=== PATIENT | female | born 1945 | race Caucasian/White ===

== ENCOUNTER 2016-12-05 07:03 | Inpatient (IN) | payer OTHER ==
[2016-11-28 10:52] VITALS: BMI 29.0
--- NOTE | 2016-11-28 11:23 | PAT Medication Instructions ---
Service Date Nov 28, 2016. Current Home Medication List Calcium Carbonate-Vitamin D (Caltrate 600+D), 1 PIECE PO BIDM Celecoxib (Celebrex), 2 CAP PO QAM Lisinopril (Zestril), 10 MG PO QPM Loratadine (Loratadine), 1 TAB PO QPM Multiple Vitamin (Multi Vitamin), 1 TAB PO QAM Medication Instructions For Your Scheduled Surgery - Hold the following medications as directed by surgeon: Celecoxib (Celebrex), 2 CAP PO QAM - Hold the following medications 24 hours prior to surgery: Lisinopril (Zestril), 10 MG PO QPM - Hold the following medications the morning of surgery: Multiple Vitamin (Multi Vitamin), 1 TAB PO QAM Calcium Carbonate-Vitamin D (Caltrate 600+D), 1 PIECE PO BIDM - Take the following medications as scheduled the night before surgery: Calcium Carbonate-Vitamin D (Caltrate 600+D), 1 PIECE PO BIDM Loratadine (Loratadine), 1 TAB PO QPM Nothing to eat or drink after midnight If you have any questions please call us at [phone] or [phone] or [phone]
--- NOTE | 2016-11-28 12:23 | DIAGNOSTIC IMAGING REPORT ---
CHEST 2 VIEWS ROUTINE CLINICAL HISTORY: PAT preoperative evaluation COMPARISON STUDY: No previous studies for comparison. FINDINGS: S-shaped scoliosis of the thoracolumbar spine. Lungs are clear. Diaphragms are smooth. No evidence for cardiac enlargement. IMPRESSION: Negative chest. Electronically signed by: Jack Foster M.D. 11/28/2016 12:22 PM Dictated Date/Time: 11/28/2016 12:22 PM
[2016-11-28 12:32] LABS: BASO % 0.6 %; BASO ABS # 0.03 K/uL (0-0.2); COMPLETE YES; EOS % 1.1 %; HEMATOCRIT 44.7 % (37-47); IG% 0.2 %; LYMPH % 24.1 %; LYMPH ABS # 1.29 K/uL (1.2-3.4); MEAN CELL VOLUME 94.5 fL (80-100); MEAN CORPUSCULAR HEMOGLOBIN 31.1 pg (25-34); MEAN CORPUSCULAR HGB CONC 32.9 g/dl (32-36); MEAN PLATELET VOLUME 9.5 fL (7.4-10.4); MONO % 6.2 %; NEUT % 67.8 %; PLATELET COUNT 275 K/uL (130-400); RED BLOOD COUNT 4.73 M/uL (4.2-5.4); WHITE BLOOD COUNT 5.35 K/uL (4.8-10.8)
[2016-11-28 12:34] LABS: URINE APPEARANCE CLEAR (CLEAR); URINE BILIRUBIN NEG (NEG); URINE COLOR YELLOW; URINE NITRITE NEG (NEG); URINE SPECIFIC GRAVITY 1.015 (1.000-1.030); UROBILINOGEN NEG (NEG)
[2016-11-28 12:41] LABS: MANUAL MICROSCOPIC REQUIRED? NO; REVIEW REQ? NO
[2016-11-28 12:47] LABS: PROTHROMBIN TIME (PATIENT) 10.4 SECONDS (9.0-12.0)
[2016-11-28 13:14] LABS: BUN/CREATININE RATIO 14.4 (10-20); CALCIUM 9.9 mg/dl (8.5-10.1); CREATININE 0.97 mg/dl (0.60-1.20); POTASSIUM 4.5 mmol/L (3.5-5.1)
[2016-12-05] VITALS (8 sets, daily range): BP systolic 95–147; BP diastolic 53–68; PULSE 65–77; TEMP 36.4–36.9; O2SAT 95–99; Ht 149.9 cm; Wt 65.5 kg
[~2016-12-05] VITALS: Ht 149.9 cm; Wt 65.5 kg
--- NOTE | 2016-12-05 06:48 | History and Physical ---
History & Physical Date Dec 05, 2016. Chief Complaint Osteoarthritis Left Knee History of Present Illness The patient is a 71 year old female with complaints of chronic Left knee pain Past Medical/Surgical History hypertension, hepatitis Additional History Hepatic Disease: No Endocrine Disorder: No Kidney Disease: No Hypertension: No Heart Disease: No Bleeding Tendencies: No Infectious Diseases: No Allergies Coded Allergies: NO KNOWN DRUG ALLERGIES (Verified Allergy, Unknown, none, 11/28/16) Home Medications Scheduled Calcium Carbonate-Vitamin D (Caltrate 600+D), 1 PIECE PO BIDM Celecoxib (Celebrex), 2 CAP PO QAM Lisinopril (Zestril), 10 MG PO QPM Loratadine (Loratadine), 1 TAB PO QPM Multiple Vitamin (Multi Vitamin), 1 TAB PO QAM Physical Examination Skin: warm/dry, no rash Eyes: normal inspection, EOMI, sclerae normal ENT: normal ENT inspection, pharynx normal Head: normocephalic, atraumatic Neck: supple, no adenopathy, trachea midline Respiratory/Chest: lungs clear, normal breath sounds, no respiratory distress Cardiovascular: regular rate, rhythm, no edema, no murmur Abdomen / GI: normal bowel sounds, non tender Back: normal inspection Extremities: normal inspection, normal range of motion Neurologic/Psych: no motor/sensory deficits, alert, normal reflexes, oriented x 3 Diagnosis Osteoarthritis Left Knee Plan of Treatment Left Total Knee Arthroplasty
--- NOTE | 2016-12-05 06:49 | History & Physical Bridge Note ---
H&P Re-Evaluation Bridge Note: I have examined the patient, reviewed the History & Physical and in the interval since the performance of the History & Physical I have noted the following changes of clinical significance: No changes noted
[~2016-12-05 07:03] MED LIST: ACETAMINOPHEN 500 MG TAB PO SCH; CALC1CHW PO; CEFAZOLIN 2000 MG/60 ML D5W 60 ML IV SCH; CLB100 PO; FAMOTIDINE 20 MG TAB PO SCH; GABAPENTIN 300 MG CAP PO SCH; LACTATED RINGER'S 1000ML 1,000 ML IV SCH; LACTATED RINGER'S 1000ML 500 ML IV ONE; LISI-461 PO; LORA10CA10 PO; MULT-1027 PO; ROPIVACAINE 5MG/ML 30 ML 150 MG, BUPIVACAINE/EPINEPHR 0.5% MPF 30 ML, KETOROLAC TROMETH... INFIL SCH; TRANEXAMIC ACID INJ 1,000 MG in SODIUM CHLORIDE 0.9% 100ML 100 ML IV SCH
[2016-12-05] MEDS ORDERED: BUPIVACAINE 0.25% 30 ML VIAL ONE (07:04)
[2016-12-05] MEDS ORDERED: BUPIVACAINE 0.5 % 5 MG/1 ML PF 10ML VIAL ONE (07:05)
[2016-12-05] MEDS ORDERED: FENTANYL CITRATE INJ 50 MCG/1 ML 2 ML VIAL ONE (07:52)
[2016-12-05] MEDS ORDERED: MIDAZOLAM HCL 1 MG/ML 2ML VIAL ONE (07:52)
[2016-12-05] MEDS ORDERED: EpHEDrine SULFATE INJ 50 MG/ML AMP IV PRN (08:15)
[2016-12-05] MEDS ORDERED: ATROPINE SULFATE 0.1 MG/ML 5ML SYR IV PRN (08:15)
[2016-12-05] MEDS ORDERED: ONDANSETRON INJ 2 MG/ML 2 ML VIAL IV PRN ×2 (08:15→11:45)
[2016-12-05] MEDS ORDERED: ORTHO JOINT ANESTHETIC ONE (09:53)
[2016-12-05] MEDS ORDERED: BACITRACIN 50000 UNIT VIAL ONE (09:53)
[2016-12-05] MEDS ORDERED: PROPOFOL IV EMULSION 10 MG/ML 20 ML VIAL IV ONE (10:33)
[2016-12-05] MEDS ORDERED: PHENYLEPHRINE HCL INJ 10 MG/ML VIAL ONE (10:34)
[2016-12-05] MEDS ORDERED: EpHEDrine SULFATE INJ 50 MG/ML AMP ONE (10:58)
[2016-12-05] MEDS ORDERED: SILVER SULFADIAZINE 1% CR 50 GM JAR EXT PRN (11:45)
[2016-12-05] MEDS ORDERED: MoRPHine SULFATE 2 MG/ML CARP IV PRN (11:45)
[2016-12-05] MEDS ORDERED: BISACODYL 10 MG SUPP PR PRN (11:45)
[2016-12-05] MEDS ORDERED: SOD PHOSPHATE/SOD BIPHOSPHATE ENEMA 132 ML BTL PR PRN (11:45)
[2016-12-05] MEDS ORDERED: METOCLOPRAMIDE HCL INJ 5 MG/ML 2 ML VIAL IV PRN (11:45)
[2016-12-05] MEDS ORDERED: MAGNESIUM HYDROXIDE SUSP 30 ML UDC PO PRN (11:45)
[2016-12-05] MEDS ORDERED: OXYCODONE HCL IR 5 MG TAB (IMMEDIATE RELEASE) PO PRN (11:45)
--- NOTE | 2016-12-05 11:46 | [facility] Post Operative Brief Note ---
Immediate Operative Summary Operative Date Dec 05, 2016. Pre-Operative Diagnosis Left knee osteoarthritis Post-Operative Diagnosis Left knee osteoarthritis Procedure(s) Performed Left total knee arthroplasty Surgeon Dr. Vaca Shaker Repairer Surgeon(s) Alcides Akers PA-C Estimated Blood Loss 10CC Findings as above Specimens A. Left knee bone and tissue Complication(s) None Disposition Recovery Room / PACU
--- NOTE | 2016-12-05 12:38 | DIAGNOSTIC IMAGING REPORT ---
LEFT KNEE 1 OR 2 VIEWS ROUTINE HISTORY:71 yearsFemalestatus post total knee arthroplasty. COMPARISON: Radiographs of the bilateral knees 09/11/2016 TECHNIQUE: Portable AP and crosstable lateral views of the left knee. FINDINGS: There has been interval complete left knee total joint arthroplasty with patellar resurfacing. There are some small bone fragments seen about the posterior lateral joint space measuring up to 10 mm. Expected postsurgical swelling and deep tissue air seen about the knee with skin willard. No periprosthetic fracture is seen. Alignment is satisfactory. IMPRESSION: Satisfactory alignment status post left knee total joint arthroplasty with patellar resurfacing. The above report was generated using voice recognition software. It may contain grammatical, syntax or spelling errors. Electronically signed by: Jonathan Persaud M.D. 12/05/2016 12:36 PM Dictated Date/Time: 12/05/2016 12:34 PM
--- NOTE | 2016-12-05 12:48 | Anesthesiology Progress Note ---
Anesthesia Post Op Note Date & Time Dec 05, 2016 at 12:48 Vital Signs Pain Intensity: 0 Vital Signs Past 12 Hours Date Time Temp Pulse Resp B/P (MAP) Pulse Ox O2 Delivery O2 Flow Rate FiO2 12/05/16 12:40 76 16 98/52 99 Nasal Cannula 2 12/05/16 12:30 66 16 100/48 99 Nasal Cannula 2 12/05/16 12:20 66 16 99/51 98 Nasal Cannula 2 12/05/16 12:10 90 16 105/54 100 Oxymask 10 12/05/16 12:00 36.6 90 16 95/57 98 Oxymask 10 12/05/16 08:08 36.8 77 20 147/59 97 Room Air Notes Mental Status: alert / awake / arousable, participated in evaluation Pt Amnestic to Procedure: Yes Nausea / Vomiting: adequately controlled Pain: adequately controlled Airway Patency, RR, SpO2: stable & adequate BP & HR: stable & adequate Hydration State: stable & adequate Neuraxial Anesthesia: was administered, sensory block is resolving Anesthetic Complications: no major complications apparent
[2016-12-05] MEDS: SODIUM CHLORIDE 0.9% 1000ML 1,000 ML IV SCH ×2 (14:14→21:46)
[2016-12-05] MEDS: KETOROLAC TROMETHAMINE 15 MG/ML VIAL IV. SCH ×2 (15:06→21:45)
[2016-12-05] MEDS: ACETAMINOPHEN IV 1,000 MG in EMPTY BAG 0 ML IV SCH ×2 (15:27→23:41)
[2016-12-05] MEDS: CALCIUM 600MG + VIT D 400 IU TAB PO SCH (17:46)
[2016-12-05] MEDS: CEFAZOLIN IV 1,000 MG in DEXTROSE 5% 50ML 50 ML IV SCH (17:46)
[2016-12-05] MEDS: DOCUSATE SODIUM 100 MG CAP PO SCH (21:45)
[2016-12-05] MEDS: LISINOPRIL 10 MG TAB PO SCH (21:45)
[2016-12-05] MEDS: ASPIRIN 325 MG ECTAB PO SCH (21:45)
[2016-12-05] MEDS: LORATADINE 10 MG TAB PO SCH (21:45)
[2016-12-05] MEDS: SENNA 8.6 MG TAB PO SCH (21:45)
[2016-12-06] VITALS (8 sets, daily range): BP systolic 86–114; BP diastolic 49–70; PULSE 55–79; TEMP 36.5–37.1; O2SAT 95–98
[2016-12-06] MEDS: CEFAZOLIN IV 1,000 MG in DEXTROSE 5% 50ML 50 ML IV SCH (02:46)
[2016-12-06] MEDS: KETOROLAC TROMETHAMINE 15 MG/ML VIAL IV. SCH ×4 (02:46→21:17)
[2016-12-06 07:30] LABS: HEMATOCRIT 31.8 % (37-47); MEAN CELL VOLUME 95.8 fL (80-100); MEAN CORPUSCULAR HEMOGLOBIN 31.3 pg (25-34); MEAN CORPUSCULAR HGB CONC 32.7 g/dl (32-36); MEAN PLATELET VOLUME 9.3 fL (7.4-10.4); PLATELET COUNT 192 K/uL (130-400); RED BLOOD COUNT 3.32 M/uL (4.2-5.4); WHITE BLOOD COUNT 11.89 K/uL (4.8-10.8)
[2016-12-06] MEDS: SODIUM CHLORIDE 0.9% 1000ML 1,000 ML IV SCH (07:57)
[2016-12-06] MEDS: ACETAMINOPHEN IV 1,000 MG in EMPTY BAG 0 ML IV SCH ×3 (08:00→23:51)
[2016-12-06 08:12] LABS: BUN/CREATININE RATIO 16.7 (10-20); CALCIUM 8.8 mg/dl (8.5-10.1); CREATININE 0.9 mg/dl (0.60-1.20)
[2016-12-06] MEDS: PANTOprazole SOD 40 MG TAB PO SCH (09:53)
[2016-12-06] MEDS: MULTIVITAMIN TAB PO SCH (09:53)
[2016-12-06] MEDS: DOCUSATE SODIUM 100 MG CAP PO SCH ×2 (09:53→21:00)
[2016-12-06] MEDS: ASPIRIN 325 MG ECTAB PO SCH ×2 (09:54→21:18)
[2016-12-06] MEDS: CALCIUM 600MG + VIT D 400 IU TAB PO SCH ×2 (09:54→17:55)
--- NOTE | 2016-12-06 10:53 | Orthopedic Progress Note ---
Orthopedic Progress Note Date of Service Dec 06, 2016. Subjective Post OP Day: 1 Reports: feeling well Additional Notes: S&E at bedside. Doing very well. No complaints Objective Date Time Temp Pulse Resp B/P (MAP) Pulse Ox O2 Delivery O2 Flow Rate FiO2 12/06/16 07:20 108/67 (81) 12/06/16 06:59 36.5 64 18 86/49 (61) 96 Room Air 12/06/16 03:54 36.5 55 16 91/56 (68) 96 Room Air 92/58 (69) 12/05/16 23:46 Room Air 12/05/16 23:00 36.5 73 16 117/68 (84) 95 Room Air 12/05/16 19:41 36.9 65 16 101/60 (74) 97 12/05/16 16:33 36.5 71 16 96/56 (69) 99 Nasal Cannula 12/05/16 15:28 36.7 67 16 99/62 (74) 97 Nasal Cannula 12/05/16 15:20 Nasal Cannula 2.0 12/05/16 14:30 75 16 95/61 (72) 96 12/05/16 14:00 66 16 99/53 (68) 97 12/05/16 13:30 Room Air 12/05/16 13:30 36.4 71 16 98/61 (73) 98 Nasal Cannula 2.0 12/05/16 13:30 Nasal Cannula 2.0 12/05/16 13:05 36.8 65 16 109/49 99 Nasal Cannula 2 12/05/16 12:50 36.8 76 16 102/59 99 Nasal Cannula 2 12/05/16 12:40 76 16 98/52 99 Nasal Cannula 2 12/05/16 12:30 66 16 100/48 99 Nasal Cannula 2 12/05/16 12:20 66 16 99/51 98 Nasal Cannula 2 12/05/16 12:10 90 16 105/54 100 Oxymask 10 12/05/16 12:00 36.6 90 16 95/57 98 Oxymask 10 Laboratory Results 24 Hours: Test 12/06/16 07:06 Hematocrit 31.8 % Hemoglobin 10.4 g/dL Assessment & Plan Assessment: s/p L TKA Plan: Aspirin 325 twice a day for 6 weeks WBAT Oxycodone for pain control plan d/c to home tomorrow
[2016-12-06] MEDS: SENNA 8.6 MG TAB PO SCH (21:00)
[2016-12-06] MEDS: LISINOPRIL 10 MG TAB PO SCH (21:17)
[2016-12-06] MEDS: LORATADINE 10 MG TAB PO SCH (21:18)
[2016-12-07] MEDS: ACETAMINOPHEN IV 1,000 MG in EMPTY BAG 0 ML IV SCH ×2 (00:39→07:36)
[2016-12-07] MEDS: KETOROLAC TROMETHAMINE 15 MG/ML VIAL IV. SCH ×2 (02:31→07:36)
[2016-12-07 03:44] VITALS: BP 118/70; PULSE 67; TEMP 36.6; O2SAT 97
[2016-12-07 06:30] VITALS: BP 116/71; PULSE 71; TEMP 36.7; O2SAT 94
--- NOTE | 2016-12-07 07:01 | Orthopedic Progress Note ---
Orthopedic Progress Note Date of Service Dec 07, 2016. Subjective Post OP Day: 2 Additional Notes: S&E at bedside. Pain controlled. No complaints Objective Date Time Temp Pulse Resp B/P (MAP) Pulse Ox O2 Delivery O2 Flow Rate FiO2 12/07/16 06:30 36.7 71 16 116/71 (86) 94 Room Air 12/07/16 00:05 Room Air 12/06/16 23:18 37.1 79 16 114/70 (85) 95 Room Air 12/06/16 19:36 36.9 73 16 107/66 (80) 98 Room Air 12/06/16 15:40 Room Air 12/06/16 15:04 36.8 70 16 97/64 (75) 96 Room Air 12/06/16 11:06 64 96 12/06/16 08:00 96 Room Air 12/06/16 07:20 108/67 (81) Laboratory Results 24 Hours: Test 12/06/16 07:06 Hematocrit 31.8 % Hemoglobin 10.4 g/dL Assessment & Plan Assessment: s/p L TKA Plan: Aspirin 325 twice a day for 6 weeks WBAT Oxycodone for pain control plan d/c to home today
[2016-12-07] MEDS ORDERED: RXC5 PO (07:02)
--- NOTE | 2016-12-07 07:04 | Discharge Instructions ---
Discharge Instructions Date of Service Dec 07, 2016. Admission Reason for Admission: Primary Gonarthrosis Discharge Discharge Diagnosis / Problem: Left Total Knee Discharge Goals Goal(s): Decrease discomfort, Improve function Activity Recommendations Activity Limitations: as noted below . Instructions / Follow-Up Instructions / Follow-Up Activity and Therapy Recommendations: * If you are using [facility] then Physical Therapy will be provided until they feel you are ready to start Outpatient Physical Therapy. If you are not using a Home Health agency then Outpatient Physical Therapy should start about 3-5 days from your day of surgery. Therapy will last about 6-10 weeks * It is important not to put a pillow under your knee when you are relaxing or sleeping. It is just as important to make sure you are getting your knee perfectly straight as it is to regain your knee bend. * You were shown a series of exercises in the hospital. Do these exercises three times each day including the exercises you were shown in physical therapy. * Get up and walk several times each day. For the first four weeks, try not to stand or walk for more than one hour at a time. If you do stand or walk for more than one hour, you will not hurt anything, but your leg will likely swell. * As you feel comfortable, you may change from the walker or crutches to a cane and then to independent walking. Medications: * Narcotic You will likely be sent home from the hospital with a prescription for the narcotic pain medication that worked best throughout your stay. * Aspirin Most patients will be required to take Aspirin 325mg twice a day for 6 weeks after surgery. This is obtained [id number] and a prescription is not necessary. * Other medications may be prescribed for specific circumstances. If you have any questions, please call the office at . * Resume previous home medications unless otherwise instructed TEDs/Elastic Stockings: The white elastic stockings help limit swelling and prevent blood clots from forming in your legs.~ The more you wear them, the more they work. Wear them for six weeks. Showering: You may shower 5 days from the day of surgery. Let the soapy shower water run over the incision. Do not scrub or soak the dressing or the incision. Things To Watch For: * Drainage from the incision site that occurs more than one week after your surgery. * Increased redness at the incision site. * Fever above 102 degrees Fahrenheit. * Unusual chest pain or shortness of breath. * Call [facility] at with any of the above problems Follow-Up Visit: Follow-up with Dr. Vaca 2-3 weeks after your day of surgery. An appointment was probably scheduled when you signed-up for surgery in the office. If you have any questions call Office Instructions: More detailed instructions as well as Frequently Asked Questions were provided in a folder by our office when you signed-up for surgery. Please review these instructions when you get home. If you have any further questions or concerns, please feel free to call the office at [phone] Current Hospital Diet Patient's current hospital diet: Regular Diet Discharge Diet Recommended Diet: Regular Diet Procedures Procedures Performed: Left total knee arthroplasty Pending Studies Studies pending at discharge: no Medical Emergencies . Who to Call and When: Medical Emergencies: If at any time you feel your situation is an emergency, please call [phone] immediately. . Non-Emergent Contact Non-Emergency issues call your: Surgeon Call Non-Emergent contact if: wound has increased drainage, wound has increased redness . "Provider Documentation" section prepared by Boby Vaca. . VTE Core Measure Inpt VTE Proph given/why not?: Other Anticoagulation (Aspirin 325 twice a day for 6 weeks)
[2016-12-07] MEDS ORDERED: ASPEC325 PO (07:05)
[2016-12-07] MEDS: MULTIVITAMIN TAB PO SCH (07:37)
[2016-12-07] MEDS: ASPIRIN 325 MG ECTAB PO SCH (07:37)
[2016-12-07] MEDS: CALCIUM 600MG + VIT D 400 IU TAB PO SCH (07:37)
[2016-12-07] MEDS: DOCUSATE SODIUM 100 MG CAP PO SCH (07:37)
[2016-12-07] MEDS: PANTOprazole SOD 40 MG TAB PO SCH (07:38)
[2016-12-07 10:16] VITALS: BP 116/71; PULSE 71; TEMP 36.7; O2SAT 94
== END 2016-12-07 11:13 | disposition home or self-care (01) | DRG 470 ==
LOC: C.ACU 07:03 → C.MSW 09:30 → ENRESERV 12:42
PROVIDERS: ADMIT Orthopaedic Surgery; ATTEND Orthopaedic Surgery
PROC: 0SRD0J9 Replacement of Left Knee Joint with Synthetic Substitute, Cemented, Open Approach (ICD-10-PCS; principal; 2016-12-05 09:30)
DX: M17.12 Unilateral primary osteoarthritis, left knee (principal); I10 Essential (primary) hypertension; K75.9 Inflammatory liver disease, unspecified; E66.9 Obesity, unspecified; Z68.29 Body mass index [BMI] 29.0-29.9, adult; Z79.899 Other long term (current) drug therapy; Z87.891 Personal history of nicotine dependence; Z79.1 Long term (current) use of non-steroidal anti-inflammatories (NSAID)

== ENCOUNTER → 2017-04-20 | Outpatient (CLI) | payer OTHER ==
[~2017-04-20] MED LIST changes: +ACET-1311 PO; -ACETAMINOPHEN 500 MG TAB PO SCH; +ASPEC325 PO; -CEFAZOLIN 2000 MG/60 ML D5W 60 ML IV SCH; -FAMOTIDINE 20 MG TAB PO SCH; -GABAPENTIN 300 MG CAP PO SCH; +IBUP-1050 PO; -LACTATED RINGER'S 1000ML 1,000 ML IV SCH; -LACTATED RINGER'S 1000ML 500 ML IV ONE; -ROPIVACAINE 5MG/ML 30 ML 150 MG, BUPIVACAINE/EPINEPHR 0.5% MPF 30 ML, KETOROLAC TROMETH... INFIL SCH; +RXC5 PO; -TRANEXAMIC ACID INJ 1,000 MG in SODIUM CHLORIDE 0.9% 100ML 100 ML IV SCH
[2017-04-20 16:56] LABS: BASO % 0.5 %; BASO ABS # 0.04 K/uL (0-0.2); COMPLETE YES; EOS % 1.9 %; HEMATOCRIT 40.6 % (37-47); IG% 0.1 %; LYMPH % 23.3 %; LYMPH ABS # 1.81 K/uL (1.2-3.4); MEAN PLATELET VOLUME 9.6 fL (7.4-10.4); MONO % 8.2 %; PLATELET COUNT 272 K/uL (130-400); RED BLOOD COUNT 4.32 M/uL (4.2-5.4); WHITE BLOOD COUNT 7.77 K/uL (4.8-10.8)
[2017-04-20 17:04] LABS: URINE APPEARANCE CLEAR (CLEAR); URINE BILIRUBIN NEG (NEG); URINE COLOR YELLOW; URINE NITRITE NEG (NEG); URINE SPECIFIC GRAVITY 1.014 (1.000-1.030); UROBILINOGEN NEG (NEG)
[2017-04-20 17:05] LABS: PROTHROMBIN TIME (PATIENT) 10.5 SECONDS (9.0-12.0)
[2017-04-20 17:10] LABS: BLOOD UREA NITROGEN 11 mg/dl (7-18); BUN/CREATININE RATIO 13.9 (10-20); CALCIUM 9.2 mg/dl (8.5-10.1); CARBON DIOXIDE 28 mmol/L (21-32); CHLORIDE 105 mmol/L (98-107); CREATININE 0.82 mg/dl (0.60-1.20); GLUCOSE 76 mg/dl (70-99); MANUAL MICROSCOPIC REQUIRED? NO; POTASSIUM 4.2 mmol/L (3.5-5.1); REVIEW REQ? NO; SODIUM 138 mmol/L (136-145)
--- NOTE | 2017-04-24 12:23 | CODING QUERY MEDICAL NECESSITY ---
CQSUPPORTING DIAGNOSIS NEEDED A supporting diagnosis is required for the test/procedure performed on this patient in order for us to be reimbursed by the patient's insurance. Please provide a supporting diagnosis for the following test/procedure listed below next to the test name along with your signature. *If there is no additional diagnosis for this patient that would support the following test/procedure please document that below next to the test/procedure. Test(s)/Procedure(s) that require a supporting diagnosis: DOS 04/20/17 COMPLETE BLOOD COUNT TEST URINE CULTURE TEST Provider Signature: Date: Thank you Valerie Rowley Health Information Management Once completed, please kindly fax back to [phone] For questions please call [phone]
== END | disposition home or self-care (01) ==
LOC: C.LABBC 14:38
PROVIDERS: ATTEND Orthopaedic Surgery
DX: Z01.812 Encounter for preprocedural laboratory examination (principal); M17.11 Unilateral primary osteoarthritis, right knee

== ENCOUNTER 2017-05-19 09:14 | Inpatient (IN) | payer OTHER ==
[2017-04-23 09:27] VITALS: Ht 149.9 cm; Wt 63.0 kg
--- NOTE | 2017-05-14 08:00 | HISTORY & PHYSICAL EXAMINATION ---
DATE OF ADMISSION: 05/19/2017 CHIEF COMPLAINT: Primary osteoarthritis of the right knee. HISTORY OF PRESENT ILLNESS: Lucy is a very pleasant 72-year-old female who has been dealing with a several year history of bilateral knee pain. I just did a left total knee arthroplasty on her in November 2016 and she has done very well with that. Unfortunately, she is having a lot of right knee pain. X-rays and clinical examination were diagnostic for primary osteoarthritis of the right knee. After failing extensive conservative treatment, she elected to proceed with a right total knee arthroplasty. PAST MEDICAL HISTORY: Hypertension and hepatitis. PAST SURGICAL HISTORY: Significant for hysterectomy, carpal tunnel release, left total knee arthroplasty. ALLERGIES: None. MEDICATIONS: Lisinopril 10 mg daily, Claritin 10 mg daily, citrate, ibuprofen, multivitamin. FAMILY HISTORY: Colorectal cancer, heart disease. SOCIAL HISTORY: The patient is , has 2 kids, rarely drinks, is very active. REVIEW OF SYSTEMS: She complains of right knee pain. All other pertinent review of systems are negative. PHYSICAL EXAMINATION: GENERAL: She is awake, alert and oriented x3. She is in no apparent distress. She is very pleasant. HEENT: Pupils are equal, round and reactive to light. Extraocular motion intact. Oral mucosa is pink and moist. HEART: Regular rate per radial pulse. LUNGS: Phyllis symmetrically bilaterally with no audible breath sounds. ABDOMEN: Soft, nontender, nondistended. MUSCULOSKELETAL: On physical examination of the right knee, she ambulates independently without a limp. She has good motion from 0-125 degrees. She does have crepitus through range of motion. She has significant tenderness to palpation over the medial joint line and over the distal medial femoral condyle. She has mild bony hypertrophy. X-rays of the right knee do show advanced osteoarthritis mostly involving the medial compartment. There is joint space narrowing and osteophyte formation. IMPRESSION: Primary osteoarthritis of the right knee. PLAN: Will proceed with a right total knee arthroplasty. Postoperatively, she will be kept on aspirin for DVT prophylaxis and kept in the hospital for 2 midnights for postoperative medical management.
[2017-05-19] VITALS (7 sets, daily range): BP systolic 85–128; BP diastolic 51–81; PULSE 53–73; TEMP 36.2–36.7; O2SAT 94–100
[~2017-05-19] VITALS: Ht 149.9 cm; Wt 63.0 kg
[2017-05-19] MEDS: TRANEXAMIC ACID INJ 1,000 MG in SYRINGE 0 ML IV SCH ×2 (06:30→12:08)
[~2017-05-19 09:14] MED LIST changes: +ACETAMINOPHEN 500 MG TAB PO SCH; -ASPEC325 PO; +ATROPINE SULFATE 0.1 MG/ML 5ML SYR IV PRN; +BUPIVACAINE 0.25% 30 ML VIAL ONE; +BUPIVACAINE 0.5 % 5 MG/1 ML PF 10ML VIAL ONE; +CEFAZOLIN 2000MG IV PUSH 10 ML IV SCH; -CLB100 PO; +EpHEDrine SULFATE INJ 50 MG/ML AMP IV PRN; +EpINEphrine INJ 1MG/ML AMP 1 MG/ML AMP ONE; +FAMOTIDINE 20 MG TAB PO SCH; +FENTANYL CITRATE INJ 50 MCG/1 ML 2 ML VIAL IV PRN; +FLUMAZENIL 0.1 MG/1 ML 10 ML VIAL IV PRN; +GABAPENTIN 300 MG CAP PO SCH; +HYDROmorphone INJ 2 MG/ML SYR/VIAL IV PRN; +LABETALOL HCL IV 5 MG/ML 20ML IV PRN; +LACTATED RINGER'S 1000ML 1,000 ML IV SCH; +LACTATED RINGER'S 1000ML 500 ML IV ONE; +LACTATED RINGER'S 1000ML IV SCH; +MEPERIDINE HCL 25 MG/ML CARP IV PRN; +NALOXONE HCL 0.4 MG/1 ML VIAL/CARP IV PRN; +ONDANSETRON INJ 2 MG/ML 2 ML VIAL IV PRN; +PHENYLEPHRINE 100MCG/ML 5ML SYR IV PRN; +ROPIVACAINE 5MG/ML 30 ML 150 MG, BUPIVACAINE 0.5% MPF INJ 30 ML, EpINEphrine HCL INJ 0.... INFIL SCH; -RXC5 PO
[2017-05-19] MEDS ORDERED: MIDAZOLAM HCL 1 MG/ML 2ML VIAL ONE ×2 (09:50→12:48)
[2017-05-19] MEDS ORDERED: FENTANYL CITRATE INJ 50 MCG/1 ML 2 ML VIAL ONE (09:50)
[2017-05-19] MEDS ORDERED: PROPOFOL IV EMULSION 10 MG/ML 20 ML VIAL IV ONE (09:51)
[2017-05-19] MEDS ORDERED: ORTHO JOINT ANESTHETIC ONE (10:49)
[2017-05-19] MEDS ORDERED: BACITRACIN 50000 UNIT VIAL ONE (10:49)
[2017-05-19] MEDS ORDERED: EpHEDrine SULFATE 50MG/5ML SYR ONE (12:53)
[2017-05-19] MEDS ORDERED: PHENYLEPHRINE 100MCG/ML 5ML SYR ONE (12:53)
--- NOTE | 2017-05-19 13:56 | [facility] Post Operative Brief Note ---
Immediate Operative Summary Operative Date May 19, 2017. Pre-Operative Diagnosis Primary osteoarthritis of the right knee Post-Operative Diagnosis Primary osteoarthritis of the right knee Procedure(s) Performed Right total knee arthroplasty Surgeon Dr. Boby Vaca DO Desulfurizer Operator Surgeon(s) Donavan Akers PA-C Estimated Blood Loss 5ml Findings as above Specimens A. Bone and tissue right knee Complication(s) None Disposition Recovery Room / PACU
[2017-05-19] MEDS ORDERED: OXYCODONE HCL IR 5 MG TAB (IMMEDIATE RELEASE) PO PRN (14:00)
[2017-05-19] MEDS ORDERED: MoRPHine SULFATE 2 MG/ML CARP IV PRN (14:00)
[2017-05-19] MEDS ORDERED: METOCLOPRAMIDE HCL INJ 5 MG/ML 2 ML VIAL IV PRN (14:00)
[2017-05-19] MEDS ORDERED: BISACODYL 10 MG SUPP PR PRN (14:00)
[2017-05-19] MEDS ORDERED: MAGNESIUM HYDROXIDE SUSP 30 ML UDC PO PRN (14:00)
[2017-05-19] MEDS ORDERED: SOD PHOSPHATE/SOD BIPHOSPHATE ENEMA 132 ML BTL PR PRN (14:00)
[2017-05-19] MEDS ORDERED: ONDANSETRON INJ 2 MG/ML 2 ML VIAL IV PRN (14:00)
--- NOTE | 2017-05-19 14:44 | DIAGNOSTIC IMAGING REPORT ---
TWO VIEWS RIGHT KNEE CLINICAL HISTORY: Postoperative examination. FINDINGS: AP and crosstable lateral portable views of the right knee are obtained. A right knee arthroplasty is in near anatomic alignment. There has been undersurface remodeling of the patella. No acute fracture is seen. There are expected postoperative changes around the knee including skin clips, a surgical drain, soft tissue edema, and subcutaneous gas. IMPRESSION: Expected postoperative changes status post right knee arthroplasty. No acute fracture is seen. Electronically signed by: Jose Antonio Hart M.D. 05/19/2017 2:43 PM Dictated Date/Time: 05/19/2017 2:43 PM
--- NOTE | 2017-05-19 15:21 | Anesthesiology Progress Note ---
Anesthesia Post Op Note Date & Time May 19, 2017 at 15:21 Vital Signs Pain Intensity: 0 Vital Signs Past 12 Hours Date Time Temp Pulse Resp B/P (MAP) Pulse Ox O2 Delivery O2 Flow Rate FiO2 05/19/17 15:05 56 17 99/53 100 Nasal Cannula 2 05/19/17 14:55 51 19 88/45 100 Nasal Cannula 2 05/19/17 14:45 68 18 95/79 100 Nasal Cannula 2 05/19/17 14:35 57 14 87/44 100 Oxymask 10 05/19/17 14:25 52 16 90/43 100 Oxymask 10 05/19/17 14:17 36.2 88 18 87/46 97 Oxymask 10 05/19/17 09:36 36.7 73 18 128/81 99 Room Air Notes Mental Status: alert / awake / arousable, participated in evaluation Pt Amnestic to Procedure: Yes Nausea / Vomiting: adequately controlled Pain: adequately controlled Airway Patency, RR, SpO2: stable & adequate BP & HR: stable & adequate Hydration State: stable & adequate Neuraxial Anesthesia: was administered, sensory block is resolving Anesthetic Complications: no major complications apparent
--- NOTE | 2017-05-19 16:00 | Discharge Instructions ---
Discharge Instructions Date of Service May 19, 2017. Admission Reason for Admission: Right Knee Degenerative Joint Disease Discharge Discharge Diagnosis / Problem: Right Total Knee Discharge Goals Goal(s): Decrease discomfort, Improve function Activity Recommendations Activity Limitations: as noted below . Instructions / Follow-Up Instructions / Follow-Up Activity and Therapy Recommendations: * If you are using [facility] then Physical Therapy will be provided until they feel you are ready to start Outpatient Physical Therapy. If you are not using a Home Health agency then Outpatient Physical Therapy should start about 3-5 days from your day of surgery. Therapy will last about 6-10 weeks * It is important not to put a pillow under your knee when you are relaxing or sleeping. It is just as important to make sure you are getting your knee perfectly straight as it is to regain your knee bend. * You were shown a series of exercises in the hospital. Do these exercises three times each day including the exercises you were shown in physical therapy. * Get up and walk several times each day. For the first four weeks, try not to stand or walk for more than one hour at a time. If you do stand or walk for more than one hour, you will not hurt anything, but your leg will likely swell. * As you feel comfortable, you may change from the walker or crutches to a cane and then to independent walking. Medications: * Narcotic You will likely be sent home from the hospital with a prescription for the narcotic pain medication that worked best throughout your stay. * Aspirin Most patients will be required to take Aspirin 325mg twice a day for 6 weeks after surgery. This is obtained [id number] and a prescription is not necessary. * Other medications may be prescribed for specific circumstances. If you have any questions, please call the office at . * Resume previous home medications unless otherwise instructed TEDs/Elastic Stockings: The white elastic stockings help limit swelling and prevent blood clots from forming in your legs.~ The more you wear them, the more they work. Wear them for six weeks. Showering: You may shower 5 days from the day of surgery. Let the soapy shower water run over the willard. Do not scrub or soak the incision. Things To Watch For: * Drainage from the incision site that occurs more than one week after your surgery. * Increased redness at the incision site. * Fever above 102 degrees Fahrenheit. * Unusual chest pain or shortness of breath. * Call [facility] at with any of the above problems Follow-Up Visit: Follow-up with Dr. Vaca 2 weeks after your day of surgery. An appointment was probably scheduled when you signed-up for surgery in the office. If you have any questions call Office Instructions: More detailed instructions as well as Frequently Asked Questions were provided in a folder by our office when you signed-up for surgery. Please review these instructions when you get home. If you have any further questions or concerns, please feel free to call the office at [phone] Current Hospital Diet Patient's current hospital diet: Regular Diet Discharge Diet Recommended Diet: Regular Diet Procedures Procedures Performed: Right total knee arthroplasty Pending Studies Studies pending at discharge: no Medical Emergencies . Who to Call and When: Medical Emergencies: If at any time you feel your situation is an emergency, please call [phone] immediately. . Non-Emergent Contact Non-Emergency issues call your: Surgeon Call Non-Emergent contact if: wound has increased drainage, wound has increased redness . "Provider Documentation" section prepared by Boby Vaca. . VTE Core Measure Inpt VTE Proph given/why not?: Other Anticoagulation (Aspirin 325 twice a day for 6 weeks)
[2017-05-19] MEDS: KETOROLAC TROMETHAMINE 15 MG/ML VIAL IV. SCH ×2 (16:43→21:32)
--- NOTE | 2017-05-19 16:48 | OPERATIVE REPORT ---
DATE OF OPERATION: 05/19/2017 PREOPERATIVE DIAGNOSIS: Primary osteoarthritis of the right knee. POSTOPERATIVE DIAGNOSIS: Same. PROCEDURE: Right total knee arthroplasty. SURGEON: Dr. Boby Vaca. ELECTRONIC MASKING SYSTEM OPERATOR: Donavan Akers PA-C, whose assistance was necessary for retraction and closure. ANESTHESIA: Spinal with a right adductor nerve block. COMPLICATIONS: None. CONDITION: Stable to PACU. IMPLANTS USED: I used a [employer] total knee arthroplasty system with a size 60 femur, 67 tibia, a 28 x 8 mm patella, and a size 10 posterior stabilized poly. All complements were cemented with Palacos-G cement. INDICATIONS: Lucy is a pleasant 72-year-old female who has been complaining of chronic right knee pain. X-rays and clinical examination were diagnostic for primary osteoarthritis of the right knee. After failing extensive conservative treatment, she elected to undergo a right total knee arthroplasty. I did a left total knee arthroplasty on her in the recent past. OPERATION AND FINDINGS: On 05/19/2017 she arrived at [facility] for the above procedure. She was seen in the preoperative holding area and the operative extremity was identified and signed. She was given a preoperative antibiotic, a spinal anesthetic and a right adductor nerve block. She was taken back to the operating room, laid on the table in supine position and put under basic sedation. The right knee was then prepped and draped in sterile fashion. Time-out was done and the patient and operative extremity was properly identified. A longitudinal incision was made directly over the patella. Dissection was taken down to the extensor mechanism and a medial parapatellar arthrotomy was used. The fat pad was left intact and medial retinaculum was released and the knee was flexed. ACL and PCL and meniscus were removed. A drill was sent down the center of the femoral canal, followed by an intramedullary bettie. Off that bettie, a distal femoral cutting block was placed. A 12 mm was resected off the distal femur at 5 degrees of valgus. The distal femur was then measured with a posterior referencing guide and measured to be a size 60. Two drill holes were then placed in 3 degrees of external rotation. A 4-in-1 cutting block was then impacted into place. Anterior, posterior and chamfer cuts were then made. The box resection guide was then impacted into place and the box was resected for the posterior stabilizing component. The proximal tibia was then exposed. A drill was sent down the center of the tibial canal followed by an intramedullary bettie. Off that bettie, a proximal tibial resection guide was placed and 2 mm was taken off the low medial side. The tibia measured to be a size 67 and it was set in the appropriate rotation and then punched. The posterior aspect of the knee was then opened up, any remnants of soft tissue or bony fragments were removed from the back of the knee. Trial components were then placed. The knee was brought through a full range of motion and felt to be stable. The patella was then everted and 8 mm was resected off the posterior aspect of the patella. The patella measured to be a size 28 and 3 drill holes were placed in the patella. A trial was then placed and the knee was brought through a full range of motion and felt to be stable. All trial components were then removed. The surrounding soft tissues were injected with 100 mL orthopedic pain control cocktail. The femoral, tibial, and patellar components were then cemented in place with Palacos-G cement. Once cement had hardened, several different polyethylene trials were used and a size 10 posterior stabilized seemed to be the best fit. The final poly was then snapped into place and the anterior bar was locked. The knee was then irrigated with a total of 3 liters of normal saline solution with bacitracin. Two drains were placed. The extensor mechanism was closed with #2 FiberWire suture in the superior medial aspect and #1 Vicryl, both proximally and distally. The skin was then closed with 2-0 Vicryl, 3-0 V-Loc suture and willard. She was placed in a soft compressive dressing and taken to the postanesthesia care unit in stable condition. She tolerated the procedure well. I attest to the content of the Intraoperative Record and any orders documented therein. Any exception s are noted below.
[2017-05-19] MEDS: ACETAMINOPHEN IV 1,000 MG in EMPTY BAG 0 ML IV SCH (17:52)
[2017-05-19] MEDS: CEFAZOLIN IV 1,000 MG in SYRINGE 0 ML IV SCH (20:04)
[2017-05-19] MEDS: ASPIRIN 325 MG ECTAB PO SCH (20:55)
[2017-05-19] MEDS: LORATADINE 10 MG TAB PO SCH (20:55)
[2017-05-19] MEDS: SENNA 8.6 MG TAB PO SCH (20:55)
[2017-05-19] MEDS: DOCUSATE SODIUM 100 MG CAP PO SCH (20:55)
[2017-05-19] MEDS: LISINOPRIL 10 MG TAB PO SCH (20:56)
[2017-05-19] MEDS: SODIUM CHLORIDE 0.9% 1000ML 1,000 ML IV SCH (21:32)
[2017-05-20] VITALS (7 sets, daily range): BP systolic 95–125; BP diastolic 56–69; PULSE 56–66; TEMP 36.3–36.7; O2SAT 94–100
[2017-05-20] MEDS: ACETAMINOPHEN IV 1,000 MG in EMPTY BAG 0 ML IV SCH ×3 (02:35→18:56)
[2017-05-20] MEDS: KETOROLAC TROMETHAMINE 15 MG/ML VIAL IV. SCH ×4 (03:33→21:38)
[2017-05-20] MEDS: CEFAZOLIN IV 1,000 MG in SYRINGE 0 ML IV SCH (03:33)
[2017-05-20] MEDS: SODIUM CHLORIDE 0.9% 1000ML 1,000 ML IV SCH ×2 (03:33→12:00)
[2017-05-20 06:03] LABS: HEMATOCRIT 29.7 % (37-47); MEAN CELL VOLUME 94.3 fL (80-100); MEAN CORPUSCULAR HEMOGLOBIN 31.1 pg (25-34); MEAN PLATELET VOLUME 9.1 fL (7.4-10.4); PLATELET COUNT 229 K/uL (130-400); RED BLOOD COUNT 3.15 M/uL (4.2-5.4); WHITE BLOOD COUNT 8.66 K/uL (4.8-10.8)
[2017-05-20 06:33] LABS: BUN/CREATININE RATIO 15.6 (10-20); CALCIUM 8.4 mg/dl (8.5-10.1); CREATININE 0.85 mg/dl (0.60-1.20); POTASSIUM 4.1 mmol/L (3.5-5.1)
--- NOTE | 2017-05-20 08:06 | PROGRESS NOTE ---
DATE: 05/20/2017 CHIEF COMPLAINT: Status post right total knee arthroplasty postop day #1. PROGRESS: Lucy was seen and examined at bedside today. Overall, she is doing very well. She has very little pain in the right knee. She has been up and ambulating to the bathroom, has no other complaints. PHYSICAL EXAMINATION: RIGHT KNEE: The dressing is clean and dry and the drain is to suction. She has active dorsiflexion and plantarflexion of her right ankle and sensation is intact throughout. LABORATORY DATA: She has an H&H today of 9.8 and 29.7. Her glucose is 108. Her vital signs are all stable on room air and she is voiding on her own. X-rays postoperatively of the right knee show the prosthesis to be in anatomic alignment without any evidence of fracture, dislocation or loosening. IMPRESSION: Status post right total knee arthroplasty postop day #1. PLAN: At this point, she is doing very well and happy with her progress. She will be seen by physical therapy today. We will continue aspirin for DVT prophylaxis. Tomorrow morning, the nursing staff can change the dressing, pull the drain and will likely discharge her to home.
--- NOTE | 2017-05-20 08:21 | Anesthesiology Progress Note ---
Anesthesia Post Op Note Date & Time May 20, 2017 at 08:20 Vital Signs Pain Intensity: 0.0 Vital Signs Past 12 Hours Date Time Temp Pulse Resp B/P (MAP) Pulse Ox O2 Delivery O2 Flow Rate FiO2 05/20/17 08:00 Room Air 05/20/17 07:08 36.4 64 16 96/60 (72) 94 Room Air 05/20/17 02:51 36.3 56 14 103/59 (74) 95 Room Air 05/20/17 00:00 95/56 (69) 05/19/17 23:56 36.4 60 14 85/51 (62) 94 Room Air 05/19/17 23:23 Room Air Notes Mental Status: alert / awake / arousable, participated in evaluation Pt Amnestic to Procedure: Yes Nausea / Vomiting: adequately controlled Pain: adequately controlled Airway Patency, RR, SpO2: stable & adequate BP & HR: stable & adequate Hydration State: stable & adequate Neuraxial Anesthesia: sensory block resolved Anesthetic Complications: no major complications apparent
[2017-05-20] MEDS: ASPIRIN 325 MG ECTAB PO SCH ×2 (09:50→20:35)
[2017-05-20] MEDS: DOCUSATE SODIUM 100 MG CAP PO SCH ×2 (09:50→20:35)
[2017-05-20] MEDS: MULTIVITAMIN TAB PO SCH (09:50)
[2017-05-20] MEDS: LISINOPRIL 10 MG TAB PO SCH (21:24)
[2017-05-20] MEDS: SENNA 8.6 MG TAB PO SCH (21:24)
[2017-05-20] MEDS: LORATADINE 10 MG TAB PO SCH (21:24)
[2017-05-21] MEDS: ACETAMINOPHEN IV 1,000 MG in EMPTY BAG 0 ML IV SCH ×2 (01:44→10:00)
[2017-05-21] MEDS: KETOROLAC TROMETHAMINE 15 MG/ML VIAL IV. SCH ×2 (04:39→10:00)
[2017-05-21] MEDS ORDERED: RXC5 PO (06:05)
[2017-05-21] MEDS ORDERED: ASPEC325 PO (06:05)
[2017-05-21 07:11] VITALS: BP 133/68; PULSE 70; TEMP 36.5; O2SAT 96
--- NOTE | 2017-05-21 07:13 | PROGRESS NOTE ---
DATE: 05/21/2017 CHIEF COMPLAINT: Status post right total knee arthroplasty postop day #2. PROGRESS: Lucy was seen and examined at bedside today. Overall, she is doing fairly well. She was able to ambulate well yesterday with physical therapy going around the nurses' station. Her pain is controlled. She has no complaints. PHYSICAL EXAMINATION: RIGHT KNEE: The dressing has been changed and drain has been pulled. She is lying with her leg out in full extension and she is neurovascularly intact. IMPRESSION: Status post right total knee arthroplasty postop day #2. PLAN: At this point, she is doing as well as expected. Her pain is well controlled and she is ambulating well with physical therapy. She is on aspirin for DVT prophylaxis. Will discharge her to home later this morning.
[2017-05-21] MEDS: ASPIRIN 325 MG ECTAB PO SCH (08:21)
[2017-05-21] MEDS: MULTIVITAMIN TAB PO SCH (08:21)
[2017-05-21] MEDS: DOCUSATE SODIUM 100 MG CAP PO SCH (08:21)
--- NOTE | 2017-05-21 08:58 | DISCHARGE SUMMARY ---
DISCHARGE DIAGNOSIS: Primary osteoarthritis of the right knee. PROCEDURE: Right total knee arthroplasty on 05/19/[address] Boby Vaca. DISCHARGE INSTRUCTIONS: 1. Aspirin 325 mg twice a day for 6 weeks. 2. LISSET hose stockings for 6 weeks. 3. Oxycodone 5-10 mg every 4 hours as needed for pain. 4. Zestril 10 mg daily. 5. Claritin 10 mg daily. 6. Continue all vitamins, minerals and supplementations. 7. Follow up with Dr. Vaca in 2 weeks. 8. Call the office of Dr. Vaca with any questions or concerns. HOSPITAL COURSE: Lucy is a pleasant 72-year-old female who presented to my office with complaints of chronic right knee pain. X-rays and clinical examination were diagnostic for primary osteoarthritis of the right knee. After failing extensive conservative treatment, she elected to undergo a right total knee arthroplasty. On 05/19/2017 she arrived at [facility] and underwent a right knee replacement without complication. She had a spinal anesthetic and a right adductor nerve block. Postoperatively, she was started on aspirin for DVT prophylaxis and discharged to general orthopedic floor. Her hospital course was uneventful. On postop day #1, her H&H was stable at 9.8 and 29.7. She was up and ambulating well with physical therapy and her pain was well controlled. On postop day #2, she continued to do well. The dressing was changed, the drain was pulled and she continued to work well with physical therapy. She was subsequently discharged to home where she will do outpatient physical therapy.
[2017-05-21 10:15] VITALS: BP 133/68; PULSE 70; TEMP 36.5; O2SAT 96
[2017-05-21 10:28] VITALS: BP 123/76
== END 2017-05-21 11:02 | disposition home or self-care (01) | DRG 470 ==
LOC: C.ACU 09:14 → C.3E 10:30 → ENRESERV 14:49
PROVIDERS: ADMIT Orthopaedic Surgery; ATTEND Orthopaedic Surgery
PROC: 0SRC0J9 Replacement of Right Knee Joint with Synthetic Substitute, Cemented, Open Approach (ICD-10-PCS; principal; 2017-05-19 12:25)
DX: M17.11 Unilateral primary osteoarthritis, right knee (principal); I10 Essential (primary) hypertension